=== PATIENT | male | born 1955 | race African-American/Black ===

== ENCOUNTER 2016-09-12 08:23 | Emergency (ER) | payer OTHER ==
[~2016-09-12] VITALS: Ht 190.5 cm; Wt 83.9 kg
[2016-09-12 08:39] VITALS: BP 121/77
--- NOTE | 2016-09-12 08:51 | PHYS DOC ---
Past Medical History Past Medical History: Bronchitis, Pneumonia Past Surgical History: No Surgical History Alcohol Use: None Drug Use: None Adult General Chief Complaint Chief Complaint: COUGH HPI HPI Patient is a 60 year old male with history of bronchitis who presents with a productive cough with yellow sputum for 10 days. Patient denies any fever. Denies any chest pain or shortness of breath. Denies smoking currently, he states he stopped smoking 20 years ago. Review of Systems Review of Systems Constitutional: Denies fever or chills [] Eyes: Denies change in visual acuity, redness, or eye pain [] HENT: Denies nasal congestion or sore throat [] Respiratory: Productive cough with yellow sputum Cardiovascular: No additional information not addressed in HPI [] GI: Denies abdominal pain, nausea, vomiting, bloody stools or diarrhea [] : Denies dysuria or hematuria [] Musculoskeletal: Denies back pain or joint pain [] Integument: Denies rash or skin lesions [] Neurologic: Denies headache, focal weakness or sensory changes [] Endocrine: Denies polyuria or polydipsia [] Allergies Allergies Allergies Coded Allergies Type Severity Reaction Last Updated Verified No Known Drug Allergies 09/12/16 No Physical Exam Physical Exam Constitutional: Well developed, well nourished, no acute distress, non-toxic appearance. [] HENT: Normocephalic, atraumatic, bilateral external ears normal, oropharynx moist, no oral exudates, nose normal. [] Eyes: PERRLA, EOMI, conjunctiva normal, no discharge. [] Neck: Normal range of motion, no tenderness, supple, no stridor. [] Cardiovascular:Heart rate regular rhythm, no murmur [] Lungs & Thorax: Bilateral breath sounds clear to auscultation [] Abdomen: Bowel sounds normal, soft, no tenderness, no masses, no pulsatile masses. [] Skin: Warm, dry, no erythema, no rash. [] Back: No tenderness, no CVA tenderness. [] Extremities: No tenderness, no cyanosis, no clubbing, ROM intact, no edema. [] Neurologic: Alert and oriented X 3, normal motor function, normal sensory function, no focal deficits noted. [] Psychologic: Affect normal, judgement normal, mood normal. [] Current Patient Data Vital Signs Vital Signs Date Time Temp Pulse Resp B/P Pulse Ox O2 Delivery O2 Flow Rate FiO2 3/6/17 08:39 99.8 81 20 121/77 97 Room Air 99.8 EKG EKG [] Radiology/Procedures Radiology/Procedures []PROCEDURE: CHEST PA & LATERAL EXAM: Chest 2 views. HISTORY: Cough, bronchitis. COMPARISON: None. FINDINGS: Frontal and lateral views of the chest are obtained. Hyperinflation is consistent with chronic obstructive pulmonary disease. There is a calcified granuloma versus a pleural calcification in the left apex. There is no pneumothorax or pleural effusion. The heart is not enlarged. IMPRESSION: 1. Chronic obstructive pulmonary disease. No confluent infiltrates. DICTATED and SIGNED BY: VERN MOURA MD DATE: 09/12/16 0900 CC: MELANIE HESTER APRN ~ Course & Med Decision Making Course & Med Decision Making Pertinent Labs and Imaging studies reviewed. (See chart for details) Patient is in the ED with a productive cough with yellow sputum for 10 days. Chest x-ray interpreted by radiologist is noted for chronic COPD. Patient states he stopped smoking 20 years ago. He does have a slight temperature of 99.8 the rest of his vitals are normal. He was given Tylenol in the ED. Was instructed to take Tylenol every 4 hours and Motrin every 6 hours as needed for fever. He was discharged with Z-Raúl, albuterol inhaler, Tessalon Perles, prednisone for 5 days. He was provided a primary care doctor for follow-up in the next 7 days. He was instructed to return to the ED at any point symptoms worsen or he has any concerning symptoms. Dragon Disclaimer Dragon Disclaimer This electronic medical record was generated, in whole or in part, using a voice recognition dictation system. Departure Departure Impression: Primary Impression: COPD (chronic obstructive pulmonary disease) Additional Impressions: Fever Acute bronchitis Disposition: HOME, SELF-CARE Condition: STABLE Patient Instructions: Acute Bronchitis, Chronic Obstructive Pulmonary Disease Additional Instructions: You seen for bronchitis and COPD. Please do not smoke. Take the prescribed medicines as ordered. Take Tylenol every 4 hours and Motrin every 6 hours as needed for fever. Complete your antibiotics. Establish care with one of the doctors from the list provided. Come back to the ED at any point symptoms worsen or you have any concerning symptoms. Scripts Azithromycin (Zithromax)250 Mg Tablet1 Pkg PO UD #1 PKG Prov:MELANIE HESTER APRN 09/12/16 Prednisone 50 Mg Tablet1 Tab PO DAILY #5 TAB Prov:MELANIE HESTER APRN 09/12/16 Benzonatate (Tessalon Perle)100 Mg Capsule1 Cap PO TID #30 CAP Prov:MELANIE HESTER APRN 09/12/16 Albuterol Sulfate (Proair Respiclick)90 Mcg Aer.pow.[email or web address] Puff IH PRN Q6HRS PRN SHORTNESS OF BREATH #1 INHALER Prov:MELANIE HESTER APRN 09/12/16 Problem Qualifiers Primary Impression: COPD (chronic obstructive pulmonary disease) COPD type: chronic bronchitis Chronic bronchitis type: unspecified Qualified Code: J42 - Unspecified chronic bronchitis Additional Impressions: Fever Fever type: unspecified Qualified Code: R50.9 - Fever, unspecified Acute bronchitis Bronchitis organism: unspecified organism Qualified Code: J20.9 - Acute bronchitis, unspecified MELANIE HESTER APRN Sep 12, 2016 08:51
--- NOTE | 2016-09-12 09:04 | RAD ---
EXAM: Chest 2 views. HISTORY: Cough, bronchitis. COMPARISON: None. FINDINGS: Frontal and lateral views of the chest are obtained. Hyperinflation is consistent with chronic obstructive pulmonary disease. There is a calcified granuloma versus a pleural calcification in the left apex. There is no pneumothorax or pleural effusion. The heart is not enlarged. IMPRESSION: 1. Chronic obstructive pulmonary disease. No confluent infiltrates.
[2016-09-12] MEDS ORDERED: PRED50TA PO (09:50)
[2016-09-12] MEDS ORDERED: AZIT250T PO (09:50)
[2016-09-12] MEDS ORDERED: PROAIR RESPICL90 MCG IH (09:50)
[2016-09-12] MEDS ORDERED: BENZ100C PO (09:50)
[2016-09-12] MEDS ORDERED: ACETAMINOPHEN 500 MG TABLET PO ONE (10:00)
== END 2016-09-12 10:08 | disposition home or self-care (01) ==
LOC: ER 08:23
DX: J42 Unspecified chronic bronchitis (principal); R50.9 Fever, unspecified; Z87.891 Personal history of nicotine dependence
CPT/HCPCS: 71020; 99284-25